=== PATIENT | male | born 1985 | race Caucasian/White ===

== ENCOUNTER 2020-09-26 13:07 | Emergency (ER) | payer OTHER ==
[2020-09-26] MEDS ORDERED: ANUSOL-HC30 GM TOP (15:26)
[2020-09-26] MEDS ORDERED: ANUCORT-HC25 MG PR (15:26)
== END 2020-09-26 15:40 | disposition home or self-care (01) ==
LOC: FER 13:07
DX: K64.4 Residual hemorrhoidal skin tags (principal); R10.9 Unspecified abdominal pain; F17.210 Nicotine dependence, cigarettes, uncomplicated
CPT/HCPCS: 99283

== ENCOUNTER 2021-04-21 19:04 | Emergency (ER) | payer SELFPAY ==
[~2021-04-21 19:04] MED LIST: ANUCORT-HC25 MG PR; ANUSOL-HC30 GM TOP
[2021-04-22 00:35] LABS: INFLUENZA A NAA NEGATIVE (NEGATIVE)
[2021-04-22 00:40] LABS: CORONAVIRUS 2019 SARS-COV-2 POSITIVE (NEGATIVE)
[2021-04-22] MEDS ORDERED: IBUPROFEN800 MG PO (00:56)
== END 2021-04-22 01:10 | disposition home or self-care (01) ==
LOC: FER 19:04
PROVIDERS: Emergency Medicine Emergency Medical Services
DX: U07.1 COVID-19 (principal); F17.210 Nicotine dependence, cigarettes, uncomplicated
CPT/HCPCS: 99283; U0002

== ENCOUNTER 2021-07-10 17:34 | Emergency (ER) | payer OTHER ==
[~2021-07-10 17:34] MED LIST changes: +IBUPROFEN800 MG PO
[2021-07-10] MEDS ORDERED: KEFLEX250 MG PO (20:51)
[2021-07-10] MEDS ORDERED: BACTRIM DS TAB1 EACH PO (20:51)
== END 2021-07-10 21:05 | disposition home or self-care (01) ==
LOC: FER 17:34
DX: L03.113 Cellulitis of right upper limb (principal); F17.210 Nicotine dependence, cigarettes, uncomplicated
CPT/HCPCS: 99283